=== PATIENT | male | born 1990 | race American Indian/Alaskan Native ===

== ENCOUNTER 2016-09-13 05:42 | Emergency (ER) | payer BC, OTHER ==
[2016-09-13 07:56] LABS: Basophils % (Auto) 0.2 % (0.0-1.8); Eosinophils % (Auto) 0.1 % (0.0-4.3); Hematocrit 37.5 % (35.5-45.6); Hemoglobin 12.2 gm/dl (11.8-15.2); Mean Corpuscular HGB Conc 33 % (32-34); Mean Corpuscular Hemoglobin 28 pg (28-32); Mean Corpuscular Volume 87 fl (84-94); Platelet Count 227 K/mm3 (140-440); Red Blood Count 4.31 M/mm3 (3.65-5.03); Red Cell Distribution Width 15.6 % (13.2-15.2); White Blood Count 9.7 K/mm3 (4.5-11.0)
[2016-09-13 08:12] LABS: Anion Gap 16 mmol/L; BUN/Creatinine Ratio 13.63; Blood Urea Nitrogen 15 mg/dL (9-20); Calcium 8.7 mg/dL (8.4-10.2); Carbon Dioxide 24 mmol/L (22-30); Chloride 101.3 mmol/L (98-107); Glucose 113 mg/dL (75-100); Potassium 4.1 mmol/L (3.6-5.0); Sodium 137 mmol/L (137-145)
[2016-09-13 08:50] LABS: Urine Drugs of Abuse Note Disclamer
[2016-09-13 09:03] LABS: Bilirubin,Urine NEG (Negative); Blood,Urine NEG (Negative); Ketones,Urine TR mg/dL (Negative); Leukocyte Esterase,Urine NEG (Negative); Mucus,Urine 3+ /HPF; Nitrite,Urine NEG (Negative); Urobilinogen,Urine < 2.0 mg/dL (<2.0)
--- NOTE | 2016-09-13 10:06 | Emergency Department Report ---
ED General Adult HPI - General Chief complaint: Dizziness Stated complaint: SYNCOPAL EPISODE Time Seen by Provider: 09/13/16 07:58 Source: patient, EMS Mode of arrival: Stretcher Limitations: No Limitations - History of Present Illness Initial comments: Patient states that he felt dizzy and like he would pass out twice at work yesterday. He is not dizzy now. He states he did not lose consciousness completely. He states he has not had this problem before. He does not complain of headache or any focal neurological change. He denies any nausea vomiting diarrhea or change in urine output. He's had no symptoms. He's had no respiratory complaints. He is essentially resting comfortably and asymptomatic at the time of my initial encounter. He is accompanied by his mother. He admits to smoking marijuana prior to his work day. He is a little vague about the actual time of ingestion. Severity scale (0 -10): 0 - Related Data Home Medications Medication Instructions Recorded Confirmed Last Taken No Known Home Medications [No 09/13/16 09/13/16 Unknown Reported Home Medications] Allergies Allergy/AdvReac Type Severity Reaction Status Date / Time No Known Allergies Allergy Verified 05/24/14 23:05 ED Review of Systems ROS: Stated complaint: SYNCOPAL EPISODE Other details as noted in HPI ED Past Medical Hx - Past Medical History Previous Medical History?: Yes Hx Asthma: Yes - Surgical History Past Surgical History?: No - Social History Smoking Status: Current Every Day Smoker Substance Use Type: Marijuana - Medications Home Medications: Home Medications Medication Instructions Recorded Confirmed Last Taken Type No Known Home Medications [No 09/13/16 09/13/16 Unknown History Reported Home Medications] ED Physical Exam - General Limitations: No Limitations ED Course Vital Signs 09/13/16 09/13/16 09/13/16 05:59 07:30 07:31 Temperature 98.1 F Pulse Rate 74 59 L Respiratory 20 16 16 Rate Blood Pressure 113/74 Blood Pressure 113/74 102/54 [Left] O2 Sat by Pulse 99 99 99 Oximetry - Reevaluation(s) Reevaluation #1: Patient resting comfortably again in no distress on my reassessment. He is asymptomatic at this time. His workup did not identify any indications for hospitalization. He is appropriate for follow-up with his [facility]. 09/13/16 10:04 09/13/16 10:06 ED Medical Decision Making - Lab Data Result diagrams: 09/13/16 07:39 09/13/16 07:39 Laboratory Results - last 24 hr 09/13/16 09/13/16 09/13/16 07:39 07:39 08:40 WBC 9.7 RBC 4.31 Hgb 12.2 Hct 37.5 MCV 87 MCH 28 MCHC 33 RDW 15.6 H Plt Count 227 Lymph % (Auto) 10.0 L [place] % (Auto) 8.5 H Eos % (Auto) 0.1 Baso % (Auto) 0.2 Lymph # 1.0 L [place] # 0.8 Eos # 0.0 Baso # 0.0 Seg Neutrophils % 81.2 H Seg Neutrophils # 7.9 H Sodium 137 Potassium 4.1 Chloride 101.3 Carbon Dioxide 24 Anion Gap 16 BUN 15 Creatinine 1.1 Estimated GFR > 60 BUN/Creatinine Ratio 13.63 Glucose 113 H Calcium 8.7 Urine Color Yellow Urine Turbidity Clear Urine pH 5.0 Ur Specific [place] 1.018 Urine Protein 30 mg/dl Urine Glucose (UA) Neg Urine Ketones Tr Urine Blood Neg Urine Nitrite Neg Urine Bilirubin Neg Urine Urobilinogen < 2.0 Ur Leukocyte Esterase Neg Urine WBC (Auto) 3.0 Urine RBC (Auto) 1.0 Urine Mucus 3+ - EKG Data -: EKG Interpreted by Me EKG shows normal: sinus rhythm, axis, intervals, QRS complexes, ST-T waves - EKG Data Interpretation: other (the repolarization pattern noted) Critical care attestation.: If time is entered above; I have spent that time in minutes in the direct care of this critically ill patient, excluding procedure time. ED Disposition Clinical Impression: Weakness, Dizziness Disposition: DISCHARGED TO HOME OR SELFCARE Is pt being admited?: No Does the pt Need Aspirin: No Condition: Stable Instructions: Weakness (ED), Dizziness (ED) Additional Instructions: Follow-up with her [facility]. Return any acute change or symptoms. [facility] - [facility] Forms: Work/School Release Form, Work/School Excuse Out Patient Time of Disposition: 10:08
[2016-09-13 10:47] VITALS: BP 106/51
== END 2016-09-13 10:47 | disposition home or self-care (01) ==
LOC: ED 05:42
DX: R42 Dizziness and giddiness (principal); R53.1 Weakness; J45.909 Unspecified asthma, uncomplicated; F12.10 Cannabis abuse, uncomplicated; F17.200 Nicotine dependence, unspecified, uncomplicated
CPT/HCPCS: 36415; 80048; 80307; 81001; 85025; 93005; 93010; 99284